=== PATIENT | female | born 1945 | race Caucasian/White ===

== ENCOUNTER 2019-10-24 22:54 | Inpatient (IN) ==
[2019-10-25] MEDS ORDERED: HEPARIN DRIP 25,000 UNITS/500 ML PREMIX IV SCH (01:30)
[2019-10-25] MEDS ORDERED: ALBUTEROL/IPRATROPIUM 3 ML NEB RESP TX PRN (03:30)
[2019-10-25] MEDS ORDERED: ENOXAPARIN 30 MG/0.3 ML SYRINGE SUBCUT ONE (03:30)
[2019-10-25 05:01] LABS: Basophils % 0.5 % (0.0-0.8); Eosinophils # 0.7 10*3/uL (0.0-0.87); Eosinophils % 9.8 % (0.00-10.9); Hematocrit 33.6 VOL% (35.7-47.0); Hemoglobin 10.3 GM/DL (12.0-16.0); Immature Granulocytes % 0.8 %; Immature Granulocytes Absolute 0.06 #; Lymphocytes # 1.3 10*3/uL (1.4-4.0); Lymphocytes % 17.2 % (21.3-54.2); Mean Corpuscular HGB Conc 30.7 GM/DL (32-36); Mean Corpuscular Volume 88.7 FL (87-102); Mean Platelet Volume 11.5 FL (9.6-12.0); Neutrophils % 64.7 % (38.7-73.9); Platelet Count 171 T/CUMM (130-400); Red Blood Count 3.79 MC/CUMM (3.8-5.5); Red Cell Distribution Width 15.5 % (9.3-17.3); White Blood Count 7.6 T/CUMM (4-12)
[2019-10-25 05:23] LABS: Albumin 2.9 G/DL (3.4-5.0); Bilirubin,Total 0.7 MG/DL (0.2-1.0); Calcium 8.4 MG/DL (8.5-10.1); Osmolality,Calculated 279.3 MOS/KG (273-304); Total Protein 5.9 G/DL (6.4-8.3)
[2019-10-25 05:34] LABS: Risk Ratio 2.37; VLDL CHOLESTEROL 14.4 MG/DL
[2019-10-25] MEDS: LEVOTHYROXINE 112 MCG TABLET PO SCH (06:17)
[2019-10-25] MEDS: sulfaSALAzine 500 MG TABLET PO SCH ×2 (09:38→21:50)
[2019-10-25] MEDS: amLODIPine 5 MG TABLET PO SCH (09:39)
[2019-10-25] MEDS: Teriparatide [Forteo] 20 MCG SUBCUT SCH (09:39)
[2019-10-25] MEDS: CETIRIZINE 10 MG TABLET PO SCH (09:39)
[2019-10-25] MEDS: OSELTAMIVIR 75 MG CAPSULE PO SCH ×2 (09:39→21:51)
[2019-10-25] MEDS: ROSUVASTATIN 20 MG TABLET PO SCH (10:27)
[2019-10-25] MEDS: ASPIRIN CHEW 81 MG TABLET PO SCH (10:27)
[2019-10-25] MEDS: carvediloL 3.125 MG TABLET PO SCH ×2 (10:27→21:51)
[2019-10-25] MEDS: cefTRIAXone 1,000 MG in SYRINGE 1 EACH IV SCH (15:46)
[2019-10-25] MEDS: ENOXAPARIN 80 MG/0.8 ML SYRINGE SUBCUT SCH (15:48)
[2019-10-25] MEDS: DONEPEZIL 10 MG TABLET PO SCH (21:51)
[2019-10-25] MEDS: traMADol 50 MG TABLET PO PRN (21:51)
[2019-10-26] MEDS: ENOXAPARIN 80 MG/0.8 ML SYRINGE SUBCUT SCH ×2 (04:45→16:10)
[2019-10-26 04:50] LABS: Basophils # 0.1 10*3/uL (0.0-0.2); Basophils % 0.7 % (0.0-0.8); Eosinophils # 0.8 10*3/uL (0.0-0.87); Eosinophils % 11.9 % (0.00-10.9); Hemoglobin 10.5 GM/DL (12.0-16.0); Immature Granulocytes % 0.3 %; Immature Granulocytes Absolute 0.02 #; Lymphocytes # 1.5 10*3/uL (1.4-4.0); Lymphocytes % 22.5 % (21.3-54.2); Mean Corpuscular Volume 88.8 FL (87-102); Mean Platelet Volume 11.7 FL (9.6-12.0); Monocytes % 7.4 % (1.7-12.7); Neutrophils % 57.2 % (38.7-73.9); Platelet Count 161 T/CUMM (130-400); Red Blood Count 3.94 MC/CUMM (3.8-5.5); Red Cell Distribution Width 15.1 % (9.3-17.3); White Blood Count 6.7 T/CUMM (4-12)
[2019-10-26 05:11] LABS: Calcium 8.3 MG/DL (8.5-10.1); Osmolality,Calculated 271.8 MOS/KG (273-304)
[2019-10-26 05:15] LABS: Eosinophils 16 % (0-10); Hypochromasia 1+; Lymphocytes 21 % (20-55); Platelet Estimate Adequate; Segmented Neutrophils 55 % (50-85); Total Cells Counted 100
[2019-10-26] MEDS: LEVOTHYROXINE 112 MCG TABLET PO SCH (05:50)
[2019-10-26] MEDS ORDERED: MAGNESIUM SULF RIDER 4 GM in PREMIX 1 EACH IV PRN (08:28)
[2019-10-26] MEDS ORDERED: MAGNESIUM SULF RIDER 2 GM in PREMIX 1 EACH IV PRN (08:28)
[2019-10-26] MEDS: Teriparatide [Forteo] 20 MCG SUBCUT SCH (09:02)
[2019-10-26] MEDS: sulfaSALAzine 500 MG TABLET PO SCH ×2 (09:46→21:06)
[2019-10-26] MEDS: ASPIRIN CHEW 81 MG TABLET PO SCH (09:46)
[2019-10-26] MEDS: amLODIPine 5 MG TABLET PO SCH (09:46)
[2019-10-26] MEDS: CETIRIZINE 10 MG TABLET PO SCH (09:46)
[2019-10-26] MEDS: POTASSIUM CHLORIDE 20 MEQ TABLET PO PRN ×2 (09:46→11:41)
[2019-10-26] MEDS: ROSUVASTATIN 20 MG TABLET PO SCH (09:46)
[2019-10-26] MEDS: OSELTAMIVIR 75 MG CAPSULE PO SCH ×2 (09:46→21:06)
[2019-10-26] MEDS: carvediloL 3.125 MG TABLET PO SCH ×2 (09:46→21:06)
[2019-10-26] MEDS: cefTRIAXone 1,000 MG in SYRINGE 1 EACH IV SCH (11:40)
[2019-10-26] MEDS ORDERED: CLOPIDOGREL 300 MG TABLET PO ONE (20:00)
[2019-10-26] MEDS: traMADol 50 MG TABLET PO PRN (21:06)
[2019-10-26] MEDS: DONEPEZIL 10 MG TABLET PO SCH (21:06)
[2019-10-26] MEDS: LOSARTAN 25 MG TABLET PO SCH (21:06)
[2019-10-27 05:20] LABS: Basophils % 0.5 % (0.0-0.8); Eosinophils # 0.8 10*3/uL (0.0-0.87); Eosinophils % 12.8 % (0.00-10.9); Hematocrit 35.1 VOL% (35.7-47.0); Hemoglobin 10.8 GM/DL (12.0-16.0); Immature Granulocytes % 0.3 %; Immature Granulocytes Absolute 0.02 #; Lymphocytes # 1.5 10*3/uL (1.4-4.0); Lymphocytes % 23.1 % (21.3-54.2); Mean Corpuscular HGB Conc 30.8 GM/DL (32-36); Mean Corpuscular Volume 87.8 FL (87-102); Mean Platelet Volume 11.3 FL (9.6-12.0); Monocytes % 8.9 % (1.7-12.7); Neutrophils % 54.4 % (38.7-73.9); Platelet Count 187 T/CUMM (130-400); Red Cell Distribution Width 15.3 % (9.3-17.3); White Blood Count 6.5 T/CUMM (4-12)
[2019-10-27 05:47] LABS: Calcium 8.6 MG/DL (8.5-10.1); Osmolality,Calculated 275.5 MOS/KG (273-304)
[2019-10-27 06:00] LABS: Band Neutrophils 1 % (0-10); Eosinophils 11 % (0-10); Hypochromasia 1+; Lymphocytes 26 % (20-55); Platelet Estimate Normal; Segmented Neutrophils 51 % (50-85); Total Cells Counted 100
[2019-10-27 06:01] LABS: Atypical Lymphocytes Few; Reactive Lymphocytes Few
[2019-10-27] MEDS: LEVOTHYROXINE 112 MCG TABLET PO SCH (06:27)
[2019-10-27] MEDS: sulfaSALAzine 500 MG TABLET PO SCH ×2 (09:25→21:17)
[2019-10-27] MEDS: POTASSIUM CHLORIDE 20 MEQ TABLET PO PRN ×4 (09:25→15:53)
[2019-10-27] MEDS: OSELTAMIVIR 75 MG CAPSULE PO SCH ×2 (09:26→21:17)
[2019-10-27] MEDS: ROSUVASTATIN 20 MG TABLET PO SCH (09:26)
[2019-10-27] MEDS: CLOPIDOGREL 75 MG TABLET PO SCH (09:26)
[2019-10-27] MEDS: ASPIRIN CHEW 81 MG TABLET PO SCH (09:26)
[2019-10-27] MEDS: LOSARTAN 25 MG TABLET PO SCH ×2 (09:26→21:17)
[2019-10-27] MEDS: CETIRIZINE 10 MG TABLET PO SCH (09:26)
[2019-10-27] MEDS: amLODIPine 5 MG TABLET PO SCH (09:26)
[2019-10-27] MEDS: carvediloL 3.125 MG TABLET PO SCH ×2 (09:26→21:18)
[2019-10-27] MEDS: ENOXAPARIN 30 MG/0.3 ML SYRINGE SUBCUT SCH (09:27)
[2019-10-27] MEDS: Teriparatide [Forteo] 20 MCG SUBCUT SCH (10:32)
[2019-10-27] MEDS: cefTRIAXone 1,000 MG in SYRINGE 1 EACH IV SCH (11:20)
[2019-10-27] MEDS: traMADol 50 MG TABLET PO PRN ×2 (11:20→21:17)
[2019-10-27] MEDS ORDERED: ENOXAPARIN 40 MG/0.4 ML SYRINGE SUBCUT SCH (21:00)
[2019-10-27] MEDS: DONEPEZIL 10 MG TABLET PO SCH (21:18)
[2019-10-28] MEDS: LEVOTHYROXINE 112 MCG TABLET PO SCH (05:37)
[2019-10-28] MEDS: OSELTAMIVIR 75 MG CAPSULE PO SCH ×2 (08:59→20:57)
[2019-10-28] MEDS: carvediloL 3.125 MG TABLET PO SCH ×2 (08:59→20:58)
[2019-10-28] MEDS: ROSUVASTATIN 20 MG TABLET PO SCH (08:59)
[2019-10-28] MEDS: CETIRIZINE 10 MG TABLET PO SCH (08:59)
[2019-10-28] MEDS: LOSARTAN 25 MG TABLET PO SCH ×2 (08:59→20:58)
[2019-10-28] MEDS: ENOXAPARIN 30 MG/0.3 ML SYRINGE SUBCUT SCH (08:59)
[2019-10-28] MEDS: sulfaSALAzine 500 MG TABLET PO SCH ×2 (08:59→20:57)
[2019-10-28] MEDS: ASPIRIN CHEW 81 MG TABLET PO SCH (08:59)
[2019-10-28] MEDS: CLOPIDOGREL 75 MG TABLET PO SCH (08:59)
[2019-10-28] MEDS: amLODIPine 5 MG TABLET PO SCH (08:59)
[2019-10-28] MEDS: Teriparatide [Forteo] 20 MCG SUBCUT SCH (10:10)
[2019-10-28] MEDS: cefTRIAXone 1,000 MG in SYRINGE 1 EACH IV SCH (11:47)
[2019-10-28] MEDS: traMADol 50 MG TABLET PO PRN (20:58)
[2019-10-28] MEDS: DONEPEZIL 10 MG TABLET PO SCH (20:58)
[2019-10-29] MEDS: LEVOTHYROXINE 112 MCG TABLET PO SCH (06:01)
[2019-10-29 06:24] LABS: Basophils # 0.1 10*3/uL (0.0-0.2); Basophils % 0.7 % (0.0-0.8); Eosinophils # 0.7 10*3/uL (0.0-0.87); Eosinophils % 10.2 % (0.00-10.9); Hematocrit 34.7 VOL% (35.7-47.0); Hemoglobin 10.6 GM/DL (12.0-16.0); Immature Granulocytes % 0.4 %; Immature Granulocytes Absolute 0.03 #; Lymphocytes # 2.2 10*3/uL (1.4-4.0); Lymphocytes % 31.8 % (21.3-54.2); Mean Corpuscular HGB Conc 30.5 GM/DL (32-36); Mean Corpuscular Volume 89.2 FL (87-102); Mean Platelet Volume 11.3 FL (9.6-12.0); Monocytes % 8.4 % (1.7-12.7); Neutrophils % 48.5 % (38.7-73.9); Platelet Count 168 T/CUMM (130-400); Red Blood Count 3.89 MC/CUMM (3.8-5.5); Red Cell Distribution Width 15.6 % (9.3-17.3)
[2019-10-29 06:40] LABS: Osmolality,Calculated 274.8 MOS/KG (273-304)
[2019-10-29] MEDS: ENOXAPARIN 30 MG/0.3 ML SYRINGE SUBCUT SCH (08:35)
[2019-10-29] MEDS: ASPIRIN CHEW 81 MG TABLET PO SCH (08:35)
[2019-10-29] MEDS: ROSUVASTATIN 20 MG TABLET PO SCH (08:35)
[2019-10-29] MEDS: OSELTAMIVIR 75 MG CAPSULE PO SCH ×2 (08:36→20:42)
[2019-10-29] MEDS: LOSARTAN 25 MG TABLET PO SCH ×2 (08:36→20:42)
[2019-10-29] MEDS: CLOPIDOGREL 75 MG TABLET PO SCH (08:36)
[2019-10-29] MEDS: CETIRIZINE 10 MG TABLET PO SCH (08:36)
[2019-10-29] MEDS: sulfaSALAzine 500 MG TABLET PO SCH ×2 (08:36→20:42)
[2019-10-29] MEDS: amLODIPine 5 MG TABLET PO SCH (08:36)
[2019-10-29] MEDS: Teriparatide [Forteo] 20 MCG SUBCUT SCH (08:36)
[2019-10-29] MEDS: carvediloL 3.125 MG TABLET PO SCH ×2 (08:36→20:42)
[2019-10-29] MEDS: cefTRIAXone 1,000 MG in SYRINGE 1 EACH IV SCH (11:36)
[2019-10-29] MEDS: traMADol 50 MG TABLET PO PRN (20:42)
[2019-10-29] MEDS: DONEPEZIL 10 MG TABLET PO SCH (20:42)
[2019-10-30 05:38] LABS: Basophils % 0.6 % (0.0-0.8); Eosinophils # 0.7 10*3/uL (0.0-0.87); Eosinophils % 9.9 % (0.00-10.9); Hematocrit 34.6 VOL% (35.7-47.0); Hemoglobin 10.7 GM/DL (12.0-16.0); Immature Granulocytes % 0.4 %; Immature Granulocytes Absolute 0.03 #; Lymphocytes # 2.3 10*3/uL (1.4-4.0); Lymphocytes % 33.1 % (21.3-54.2); Mean Corpuscular HGB Conc 30.9 GM/DL (32-36); Mean Corpuscular Volume 88.3 FL (87-102); Mean Platelet Volume 11.9 FL (9.6-12.0); Monocytes % 7.5 % (1.7-12.7); Neutrophils % 48.5 % (38.7-73.9); Platelet Count 195 T/CUMM (130-400); Red Blood Count 3.92 MC/CUMM (3.8-5.5); Red Cell Distribution Width 15.5 % (9.3-17.3); White Blood Count 6.9 T/CUMM (4-12)
[2019-10-30 05:41] LABS: Calcium 8.8 MG/DL (8.5-10.1); Osmolality,Calculated 276.7 MOS/KG (273-304)
[2019-10-30] MEDS: LEVOTHYROXINE 112 MCG TABLET PO SCH (06:01)
[2019-10-30] MEDS: ENOXAPARIN 30 MG/0.3 ML SYRINGE SUBCUT SCH (08:46)
[2019-10-30] MEDS: ASPIRIN CHEW 81 MG TABLET PO SCH (08:47)
[2019-10-30] MEDS: sulfaSALAzine 500 MG TABLET PO SCH ×2 (08:47→21:12)
[2019-10-30] MEDS: ROSUVASTATIN 20 MG TABLET PO SCH (08:48)
[2019-10-30] MEDS: LOSARTAN 25 MG TABLET PO SCH ×2 (08:48→21:13)
[2019-10-30] MEDS: CLOPIDOGREL 75 MG TABLET PO SCH (08:48)
[2019-10-30] MEDS: CETIRIZINE 10 MG TABLET PO SCH (08:48)
[2019-10-30] MEDS: OSELTAMIVIR 75 MG CAPSULE PO SCH (08:48)
[2019-10-30] MEDS: amLODIPine 5 MG TABLET PO SCH (08:48)
[2019-10-30] MEDS: Teriparatide [Forteo] 20 MCG SUBCUT SCH (08:48)
[2019-10-30] MEDS: carvediloL 3.125 MG TABLET PO SCH ×2 (08:48→21:13)
[2019-10-30] MEDS: cefTRIAXone 1,000 MG in SYRINGE 1 EACH IV SCH (11:19)
[2019-10-30] MEDS ORDERED: FLUCONAZOLE 150 MG TABLET PO ONE (14:46)
[2019-10-30] MEDS: traMADol 50 MG TABLET PO PRN (21:12)
[2019-10-30] MEDS: DONEPEZIL 10 MG TABLET PO SCH (21:12)
[2019-10-31] MEDS: LEVOTHYROXINE 112 MCG TABLET PO SCH (06:18)
[2019-10-31] MEDS: sulfaSALAzine 500 MG TABLET PO SCH ×2 (09:42→20:58)
[2019-10-31] MEDS: CLOPIDOGREL 75 MG TABLET PO SCH (09:43)
[2019-10-31] MEDS: LOSARTAN 25 MG TABLET PO SCH ×2 (09:43→20:58)
[2019-10-31] MEDS: ASPIRIN CHEW 81 MG TABLET PO SCH (09:43)
[2019-10-31] MEDS: ENOXAPARIN 30 MG/0.3 ML SYRINGE SUBCUT SCH (09:43)
[2019-10-31] MEDS: CETIRIZINE 10 MG TABLET PO SCH (09:43)
[2019-10-31] MEDS: amLODIPine 5 MG TABLET PO SCH (09:43)
[2019-10-31] MEDS: Teriparatide [Forteo] 20 MCG SUBCUT SCH (09:43)
[2019-10-31] MEDS: carvediloL 3.125 MG TABLET PO SCH ×2 (09:43→20:58)
[2019-10-31] MEDS: ROSUVASTATIN 20 MG TABLET PO SCH (09:43)
[2019-10-31] MEDS: traMADol 50 MG TABLET PO PRN (09:49)
[2019-10-31] MEDS: cefTRIAXone 1,000 MG in SYRINGE 1 EACH IV SCH (11:36)
[2019-10-31] MEDS: ALBUTEROL/IPRATROPIUM 3 ML NEB RESP TX SCH (20:20)
[2019-10-31] MEDS: DONEPEZIL 10 MG TABLET PO SCH (20:58)
[2019-11-01] MEDS: ALBUTEROL/IPRATROPIUM 3 ML NEB RESP TX SCH ×4 (01:10→19:34)
[2019-11-01] MEDS: LEVOTHYROXINE 112 MCG TABLET PO SCH (05:50)
[2019-11-01] MEDS: LOSARTAN 25 MG TABLET PO SCH ×2 (09:02→21:38)
[2019-11-01] MEDS: CETIRIZINE 10 MG TABLET PO SCH (09:02)
[2019-11-01] MEDS: ENOXAPARIN 30 MG/0.3 ML SYRINGE SUBCUT SCH (09:02)
[2019-11-01] MEDS: sulfaSALAzine 500 MG TABLET PO SCH ×2 (09:02→21:38)
[2019-11-01] MEDS: amLODIPine 5 MG TABLET PO SCH (09:03)
[2019-11-01] MEDS: ROSUVASTATIN 20 MG TABLET PO SCH (09:03)
[2019-11-01] MEDS: carvediloL 3.125 MG TABLET PO SCH ×2 (09:03→21:38)
[2019-11-01] MEDS: CLOPIDOGREL 75 MG TABLET PO SCH (09:03)
[2019-11-01] MEDS: ASPIRIN CHEW 81 MG TABLET PO SCH (09:03)
[2019-11-01] MEDS: Teriparatide [Forteo] 20 MCG SUBCUT SCH (09:03)
[2019-11-01] MEDS: cefTRIAXone 1,000 MG in SYRINGE 1 EACH IV SCH (11:01)
[2019-11-01] MEDS: traMADol 50 MG TABLET PO PRN (11:01)
[2019-11-01] MEDS: DONEPEZIL 10 MG TABLET PO SCH (21:38)
[2019-11-02] MEDS: ALBUTEROL/IPRATROPIUM 3 ML NEB RESP TX SCH ×4 (00:55→20:44)
[2019-11-02] MEDS: LEVOTHYROXINE 112 MCG TABLET PO SCH (06:34)
[2019-11-02] MEDS: CETIRIZINE 10 MG TABLET PO SCH (09:41)
[2019-11-02] MEDS: CLOPIDOGREL 75 MG TABLET PO SCH (09:41)
[2019-11-02] MEDS: LOSARTAN 25 MG TABLET PO SCH ×2 (09:41→21:04)
[2019-11-02] MEDS: ASPIRIN CHEW 81 MG TABLET PO SCH (09:41)
[2019-11-02] MEDS: sulfaSALAzine 500 MG TABLET PO SCH ×2 (09:41→21:03)
[2019-11-02] MEDS: amLODIPine 5 MG TABLET PO SCH (09:41)
[2019-11-02] MEDS: carvediloL 3.125 MG TABLET PO SCH ×2 (09:42→21:04)
[2019-11-02] MEDS: ENOXAPARIN 30 MG/0.3 ML SYRINGE SUBCUT SCH (09:42)
[2019-11-02] MEDS: ROSUVASTATIN 20 MG TABLET PO SCH (09:42)
[2019-11-02] MEDS: Teriparatide [Forteo] 20 MCG SUBCUT SCH (09:44)
[2019-11-02] MEDS: cefTRIAXone 1,000 MG in SYRINGE 1 EACH IV SCH (12:50)
[2019-11-02] MEDS ORDERED: ZINC OXIDE PASTE 113 GM TUBE TOP PRN ×2 (15:28→16:54)
[2019-11-02] MEDS: DONEPEZIL 10 MG TABLET PO SCH (21:04)
[2019-11-02] MEDS: DESITIN 4OZ/NYSTATIN 15 GRAM MIXTURE PASTE TOP SCH (21:06)
[2019-11-03] MEDS: ALBUTEROL/IPRATROPIUM 3 ML NEB RESP TX SCH ×3 (01:47→12:22)
[2019-11-03] MEDS: LEVOTHYROXINE 112 MCG TABLET PO SCH (05:43)
[2019-11-03] MEDS: ENOXAPARIN 30 MG/0.3 ML SYRINGE SUBCUT SCH (09:19)
[2019-11-03] MEDS: sulfaSALAzine 500 MG TABLET PO SCH (09:19)
[2019-11-03] MEDS: CETIRIZINE 10 MG TABLET PO SCH (09:20)
[2019-11-03] MEDS: carvediloL 3.125 MG TABLET PO SCH (09:20)
[2019-11-03] MEDS: CLOPIDOGREL 75 MG TABLET PO SCH (09:21)
[2019-11-03] MEDS: ASPIRIN CHEW 81 MG TABLET PO SCH (09:21)
[2019-11-03] MEDS: ROSUVASTATIN 20 MG TABLET PO SCH (09:21)
[2019-11-03] MEDS: LOSARTAN 25 MG TABLET PO SCH (09:21)
[2019-11-03] MEDS: DESITIN 4OZ/NYSTATIN 15 GRAM MIXTURE PASTE TOP SCH (09:22)
[2019-11-03] MEDS: amLODIPine 5 MG TABLET PO SCH (09:22)
[2019-11-03] MEDS: Teriparatide [Forteo] 20 MCG SUBCUT SCH (09:23)
[2019-11-03 16:27] VITALS: BP 132/56
== END 2019-11-03 17:27 | disposition home health service (06) | DRG 280 ==
LOC: SUATTDRO 10-25 00:38 → N.TELES 10-25 00:38
PROVIDERS: ADMIT Internal Medicine; ATTEND Internal Medicine